=== PATIENT | female | born 1985 | race Caucasian/White ===

== ENCOUNTER → 2017-04-26 | Outpatient (CLI) | payer OTHER ==
--- NOTE | 2017-04-26 13:02 | RAD ---
Left hip, 2 views, 04/26/2017: History: Hip and back pain after softball No fracture or dislocation is identified. The hip joint space is well-preserved. An IUD is projected over the lower pelvis. IMPRESSION: No significant left hip abnormality is detected.
--- NOTE | 2017-04-26 13:35 | RAD ---
3 views lumbar spine 04/26/2017 Indication: Low back pain following exercise Comparison study: None Discussion: No evidence of acute fracture or alignment abnormality is identified. Minimal levocurvature of the lumbar spine is noted, possibly positional. Vertebral body heights and disc spaces are preserved. No evidence of spondylolysis or spondylolisthesis is seen. No acute soft tissue changes are identified. No radiographic evidence of acute osseous abnormality
== END | disposition home or self-care (01) ==
LOC: PMG 12:08
PROVIDERS: ATTEND Nurse Practitioner Family
DX: M25.552 Pain in left hip (principal); M54.5 Low back pain
CPT/HCPCS: 72100; 73502

== ENCOUNTER → 2017-06-07 | Outpatient (CLI) | payer OTHER ==
[2017-06-08 14:16] LABS: FREE T4 0.84 ng/dL (0.76-1.46); THYROID STIM HORMONE (TSH) 1.786 uIU/mL (0.358-3.740)
== END | disposition home or self-care (01) ==
LOC: PMG 15:58
PROVIDERS: ATTEND Nurse Practitioner Family
DX: E03.9 Hypothyroidism, unspecified (principal); R53.83 Other fatigue
CPT/HCPCS: 82306; 84439; 84443; 84481

== ENCOUNTER → 2017-06-11 | Outpatient (CLI) | payer OTHER ==
--- NOTE | 2017-06-11 08:56 | RAD ---
Thyroid sonography Clinical indications: Thyroid cyst. COMPARISON: February 25, 2015. FINDINGS: The longitudinal and AP and transverse dimensions of the right lobe are 4.3 cm and 1.4 cm and 1.5 cm respectively. There is a cyst of the posterior mid aspect measuring 6 mm in size. There is a cyst of the mid aspect measuring 3 mm in size. These have not increased in size from the previous study. There is a 4 mm cyst within the superior pole. This was not seen previously. The longitudinal and AP and transverse dimensions of the left lobe are 4.3 cm and 1.2 cm and 1.3 cm respectively. The left lobe is homogeneous without cyst or mass. The isthmus is homogeneous measuring 0.4 cm in thickness. IMPRESSION: The previously seen cysts of the left lobe are not seen today. No significant change in size of cysts of the mid aspect of the right lobe right lobe. New small cyst of the superior pole of the right lobe. No solid nodule is evident. Electronically signed by: Naveen Barton MD (06/11/2017 8:53 AM) [id number]
== END | disposition home or self-care (01) ==
LOC: US 07:56
PROVIDERS: ATTEND Nurse Practitioner Family
DX: E04.1 Nontoxic single thyroid nodule (principal); E03.9 Hypothyroidism, unspecified
CPT/HCPCS: 76536